=== PATIENT | male | born 1995 | race Caucasian/White ===

== ENCOUNTER 2023-12-12 20:15 | Emergency (ER) | payer SELFPAY ==
[~2023-12-12] VITALS: Ht 165.1 cm; Wt 57.0 kg
[2023-12-12 20:47] VITALS: TEMP 100.1; O2SAT 100
[2023-12-13 01:30] VITALS: BP 141/92; PULSE 125; RESP 16
[2023-12-13] MEDS ORDERED: IBUPROFEN 600MG TABLET PO ONE (01:30)
[2023-12-13] MEDS ORDERED: ONDANSETRON HCL 4MG/2ML INJ IM STA (01:41)
[2023-12-13 02:38] LABS: BASOPHILS % 0.5 % (0.0-2.0); EOSINOPHILS % 1.9 % (0.0-5.0); HEMATOCRIT. 52.8 % (42.0-52.0); HEMOGLOBIN. 17.5 g/dL (14.0-18.0); LYMPHOCYTES % 16.9 % (20.0-50.0); MEAN CORPUSCULAR HGB CONC 33.2 g/dL (31.0-37.0); MEAN CORPUSCULAR VOLUME 87.4 fL (80.0-94.0); MEAN PLATELET VOLUME 7.5 fl (7.4-10.4); MONOCYTES % 9.4 % (2.0-8.0); NEUTROPHILS % 71.3 % (40.0-76.0); PLATELET 333 x1000/uL (130-400); RED BLOOD CELL COUNT 6.04 mill/uL (4.7-6.1); RED CELL DISTRIBUTION WIDTH 15.4 % (11.6-14.6); WHITE BLOOD COUNT 8.3 x1000/uL (4.5-11.0)
[2023-12-13] MEDS ORDERED: BACITRACIN ZINC OINT UDPKT TOP ONE (02:45)
[2023-12-13] MEDS ORDERED: LIDOCAINE HCL/PF 1% 10 MG/ML 5ML VIAL INFIL ONE (02:45)
[2023-12-13 02:55] LABS: ALANINE AMINOTRANSFERASE 89 IU/L (10-49); ALBUMIN 4.6 g/dL (3.2-4.8); ASPARTATE AMINOTRANSFERASE 82 IU/L (<34); BILIRUBIN TOTAL 0.7 mg/dL (0.1-1.0); CALCIUM 10.3 mg/dL (8.7-10.4); CARBON DIOXIDE 29 mEq/L (21-32); CHLORIDE 101 mEq/L (98-107); CREATININE 0.9 mg/dL (0.6-1.3); GLUCOSE 94 mg/dL (70-105); POTASSIUM 5.7 mEq/L (3.5-5.1); PROTEIN TOTAL 8.4 g/dL (6.0-8.3); SODIUM 136 mEq/L (136-145); UREA NITROGEN BLOOD 5 mg/dL (9-23)
[2023-12-13] MEDS ORDERED: ACETAMINOPHEN 325MG TABLET PO NR (03:04)
[2023-12-13 04:40] LABS: POTASSIUM 3.9 mEq/L (3.5-5.1)
[2023-12-13 05:19] LABS: CLARITY URINE CLEAR (CLEAR); COLOR URINE YELLOW (YELLOW); GLUCOSE URINE NEGATIVE (NEGATIVE); KETONES URINE NEGATIVE (NEGATIVE); LEUKOCYTE ESTERASE URINE NEGATIVE (NEGATIVE); NITRITE URINE NEGATIVE (NEGATIVE); OCCULT BLOOD URINE NEGATIVE (NEGATIVE); PH URINE 6.5 (4.5-8.0); PROTEIN URINE NEGATIVE (NEGATIVE)
[2023-12-13] MEDS ORDERED: TAM75 MT (06:06)
== END 2023-12-13 06:45 | disposition home or self-care (01) ==
LOC: ER 20:15
DX: S90.852A Superficial foreign body, left foot, initial encounter (principal); J06.9 Acute upper respiratory infection, unspecified; Z90.49 Acquired absence of other specified parts of digestive tract; Z20.822 Contact with and (suspected) exposure to COVID-19; X58.XXXA Exposure to other specified factors, initial encounter; Y93.89 Activity, other specified; Y92.89 Other specified places as the place of occurrence of the external cause; Y99.8 Other external cause status
CPT/HCPCS: 99284; 71045; 87426; 80053; 81003; 87430; 85025; 87070; 36415; 73630; 96372; 84132; J3490; J2405